=== PATIENT | female | born 1970 | race Caucasian/White ===

== ENCOUNTER → 2016-05-13 | Outpatient (CLI) | payer MEDICARE | DX: R92.8 Other abnormal and inconclusive findings on diagnostic imaging of breast (principal) | CPT/HCPCS: 76641-LT; 76641-RT; G0204 ==

== ENCOUNTER → 2020-05-09 | Outpatient (CLI) | payer MEDICARE, OTHER ==
[~2020-05-09] MED LIST: ALKA-SELTZER H1 EACH PO; CIPRO500 MG PO; CLARITIN10 MG PO; COLACE100 MG PO; EC-NAPROXEN500 MG PO; FLAGYL500 MG PO; GAS-X125 M1 PO; HEADACHE RELIE1 EAC3 PO; HYDRALAZINE HCL25 MG PO; HYDROXYZINE HCL25 MG PO; IBUPROFEN200 MG PO; IBUPROFEN600 MG PO; LORTAB 5-325 M1 EACH PO; LOTENSIN20 MG PO; OMEPRAZOLE20 MG PO; PROTONIX40 MG PO; TENORMIN 25 MG25 MG PO; TYLENOL 8 HOUR650 MG PO
== END ==
LOC: EXRD 13:07
DX: M79.641 Pain in right hand (principal); M79.642 Pain in left hand
CPT/HCPCS: 73130

== ENCOUNTER → 2020-10-08 | Outpatient (CLI) | payer MEDICARE | LOC: DTC 13:22 | DX: K76.0 Fatty (change of) liver, not elsewhere classified (principal); K30 Functional dyspepsia; E66.9 Obesity, unspecified ==